=== PATIENT | female | born 1945 | race Caucasian/White ===

== ENCOUNTER 2018-05-28 09:14 | Day surgery (SDC) | payer MEDICARE, OTHER, SELFPAY ==
[2018-05-20 10:30] VITALS: BMI 24.0
[2018-05-28 09:35] VITALS: BMI 22.4
[2018-05-28 09:59] VITALS: BP 114/72; PULSE 72; RESP 16; TEMP 36.7; O2SAT 95
[2018-05-28] MEDS: LACTATED RINGERS 1,000 ML 42 ML IV (10:00)
--- NOTE | 2018-05-28 10:37 | PM.PREOP ---
Pre-operative Note Interval Note Pre-op Check: Yes History & Physical Reviewed by Physician Changes: No
--- NOTE | 2018-05-28 10:56 | SUR.OPER ---
Supine on padded OR bed, head on pillow, arms secured on padded arm boards at <90 degrees abduction, legs uncrossed with pillow under knees , safety belt at thigh, tape over blanket over lower legs.
[2018-05-28] MEDS: CEFAZOLIN 2 GM/100 ML FROZ.PIGGY IV (11:05)
[2018-05-28] MEDS: BUPIVACAINE 0.5% W/ EPI (PF) VIAL 30 ML INJ (11:30)
[2018-05-28 11:36] VITALS: BP 101/61; PULSE 71; RESP 15; TEMP 37.1; O2SAT 93
--- NOTE | 2018-05-28 11:39 | PM.OP.1 ---
Operative Date/Time/Diagnoses Date of procedure: 05/28/18 Time of procedure: 11:39 Pre-op diagnosis: LEFT CARPAL TUNNEL Post-op diagnosis: same Procedure & Clinicians Procedure: LEFT CARPAL TUNNEL RELEASE Same procedure as scheduled: Yes Indications: PHYSICAL EXAM FINDINGS WELL EMG STUDIES POSITIVE FOR CARPAL TUNNEL Surgeon: Napoleon Zaidi Click Yes if Unassisted: Yes Anesthesia Type: Peripheral nerve block Operative Notes Findings: COMPRESSION OF THE MEDIAN NERVE AT THE CARPAL TUNNEL. SOME FLATTENING AND HOURGLASSING Closure Type: primary Specimen(s): none sent Estimated Blood Loss (mL): 1 Blood products transfused: none Tourniquet time (min): 16 Procedure in detail: ON DATE OF SERVICE, THE PATIENT WAS MET IN THE HOLDING AREA. PATIENTS OPERATIVE SITE WAS SIGNED AND WITNESSED BY THE OR STAFF. THE SURGERY WAS ONCE AGAIN DISCUSSED WITH THE PATIENT, AND ANY REMAINING QUESTIONS THEY HAD WERE ANSWERED FULLY. PATIENT WAS TAKEN BACK TO THE OPERATING THEATER AND PLACED ON THE OPERATING TABLE IN A SUPINE POSITION. GREAT CARE WAS TAKEN TO ENSURE THAT ALL BONY PROMINENCES WERE CAREFULLY PADDED. A WELL-PADDED TOURNIQUET WAS PLACED UP ALONG THE UPPER EXTREMITY. A TIMEOUT WAS PERFORMED TO VERIFY PATIENT'S NAME, PROCEDURE, AND OPERATIVE SITE. THE ARM WAS THEN PREPPED AND DRAPED IN THE NORMAL STERILE FASHION. A 15 BLADE WAS USED TO INCISE THROUGH SKIN IN THE CENTER OF THE PALM. PICKUPS AND TENOTOMY SCISSORS WERE USED TO DISSECT DOWN UNTIL THE PALMAR FASCIA WAS VISUALIZED. THE PALMAR FASCIA WAS THEN SHARPLY INCISED USING A 15 BLADE. THIS GAVE US GOOD VISUALIZATION OF THE CARPAL LIGAMENT. A SMALL OPENING WAS MADE INTO THE CARPAL LIGAMENT, AND A CURVED HEMOSTAT WAS PLACED INTO THAT OPENING. A 15 BLADE WAS THEN USED TO SHARPLY INCISE THE CARPAL LIGAMENT WITH THE STRUCTURES BENEATH BEING PROTECTED BY THE HEMOSTAT. PICKUPS AND METZENBAUM SCISSORS WERE USED TO COMPLETE THE DECOMPRESSION BOTH DISTALLY AND PROXIMALLY. THIS PROVIDED A COMPLETE DECOMPRESSION OF THE MEDIAN NERVE. THE WOUND WAS THEN IRRIGATED AND CLOSED WITH NYLON. THE HAND WAS THEN CLEANED, DRIED, AND DRESSED. PATIENT WAS TAKEN TO THE PACU IN STABLE CONDITION. Complications: none Condition: stable Disposition: PACU Plan for aftercare: PATIENT WILL FOLLOW OUR POSTOPERATIVE PROTOCOL FOR CARPAL TUNNEL RELEASE.
[2018-05-28 12:06] VITALS: BP 103/63; PULSE 68; RESP 12; TEMP 36.9; O2SAT 94
[2018-05-28 12:45] VITALS: BP 100/63; PULSE 76; RESP 16; TEMP 36.9; O2SAT 99
--- NOTE | 2018-05-28 14:25 | SUR.PHASEII ---
PT ARRIVED PHASE II VIA STRETCHER FROM OR. PT SITTING UP AND TALKING TO STAFF UPON ARRIVAL. IV SITE CLEAR AND INFUSING WITHOUT DIFFICULTLY. DRSG TO SURGICAL SITE OBSERVED TO BE C/D/I. PT DENIES ANY PAIN/DISCOMFORT FROM SURGICAL SITE. PT REPORTS DULL SENSTATION IN SURGICAL HAND RELATED TO BLOCK. PT APPEARS COMFORTABLE. BED IN LOWEST POSITION AND CALL LIGHT GIVEN TO PT. PT AWAITING RETURN OF SPOUSE FROM GETTING RX FILLED AT PHARMACY.
== END 2018-05-28 13:00 | disposition home or self-care (01) ==
PROVIDERS: PCP Internal Medicine; Visit Provider Orthopaedic Surgery
PROC: (CPT 64721; principal; 2018-05-28 10:45)
DX: G56.02 Carpal tunnel syndrome, left upper limb (principal)
CPT/HCPCS: 64721; J0690; J2250; J3010